=== PATIENT | male | born 1995 ===

== ENCOUNTER 2018-01-25 12:53 | Outpatient (REF) | payer MEDICAID, SELFPAY | END 2018-01-25 12:54 | LOC: NCHCN 12:53 | PROVIDERS: PCP Nurse Practitioner Family; Visit Provider Nurse Practitioner Family | DX: R31.9 Hematuria, unspecified (principal) | CPT/HCPCS: 87086 ==

== ENCOUNTER 2018-01-26 15:26 | Outpatient (REF) | payer MEDICAID, SELFPAY ==
[2018-01-28 13:52] LABS: Chlamydia Result Negative; GC Result Negative; Specimen Description URINE
== END 2018-01-26 15:27 ==
LOC: NCHCN 15:26
PROVIDERS: PCP Nurse Practitioner Family; Visit Provider Nurse Practitioner Family
DX: R31.9 Hematuria, unspecified (principal)
CPT/HCPCS: 87491; 87591

== ENCOUNTER 2018-02-22 15:58 | Outpatient (REF) | payer MEDICAID, SELFPAY ==
[2018-02-24 12:08] LABS: HIV-1/2 Ag & Ab Screen Negative (NEGAT)
[2018-02-24 15:57] LABS: Chlamydia Result Negative; GC Result Negative; Specimen Description URINE
[2018-02-24 21:49] LABS: C.trach, Misc, Amplified RNA Negative (Negative); N.gonorr, Misc, Amplified RNA Negative (Negative); SOURCE: ORAL; SOURCE: RECTAL
== END 2018-02-22 16:18 ==
LOC: NCHCN 15:58
PROVIDERS: PCP Nurse Practitioner Family; Visit Provider Nurse Practitioner Family
DX: F66 Other sexual disorders (principal); R31.9 Hematuria, unspecified; K21.9 Gastro-esophageal reflux disease without esophagitis; Z79.899 Other long term (current) drug therapy; Z11.3 Encounter for screening for infections with a predominantly sexual mode of transmission; Z11.4 Encounter for screening for human immunodeficiency virus [HIV]
CPT/HCPCS: 87389; 87491; 87591

== ENCOUNTER 2018-04-15 16:47 | Outpatient (REF) | payer MEDICAID, SELFPAY ==
[2018-04-15 21:17] LABS: Bacteria Rare HPF (Negative); C & S Indicated? No; Crystals Negative HPF (Negative); Epithelial Cells Rare HPF (Negative); Mucus Negative (Negative); RBC 0-2 (0-2); WBC 0-2 HPF (0-5)
== END 2018-04-15 17:07 ==
LOC: NCHCN 16:47
PROVIDERS: PCP Nurse Practitioner Family; Visit Provider Nurse Practitioner Family
DX: R31.9 Hematuria, unspecified (principal)
CPT/HCPCS: 81015

== ENCOUNTER 2019-03-03 11:10 | Outpatient (REF) | payer SELFPAY ==
[2019-03-07 12:30] LABS: HIV-1/2 Ag & Ab Screen Negative (NEGAT)
== END 2019-03-03 11:30 ==
LOC: NCHCO 11:10
PROVIDERS: PCP Nurse Practitioner Family; Visit Provider Registered Nurse
DX: Z11.3 Encounter for screening for infections with a predominantly sexual mode of transmission (principal); Z11.4 Encounter for screening for human immunodeficiency virus [HIV]
CPT/HCPCS: 87389

== ENCOUNTER 2020-05-01 17:36 | Outpatient (REF) | payer SELFPAY ==
[2020-05-01 23:21] LABS: Hemoglobin A1C 5.3 % (<5.7)
[2020-05-01 23:29] LABS: ALT 50 U/L (16-63); AST 22 U/L (15-37); Albumin 4.1 g/dL (3.4-5.0); Alkaline Phosphatase 102 U/L (46-116); Anion Gap 10.2 mmol/L (3-11); BUN 15 mg/dL (7-18); Bilirubin, Total 0.3 mg/dL (0.2-1.0); CO2 25.8 mmol/L (21.0-32.0); CREATININE 1.13 mg/dL (0.70-1.30); Calcium 9.4 mg/dL (8.5-10.1); Calculated LDL 139 mg/dL (<100); Chloride 104 mmol/L (98-107); Cholesterol 207 mg/dL (<200); Glucose 87 mg/dL (74-106); HDL Cholesterol 31 mg/dL (40-60); Potassium 4.4 mmol/L (3.5-5.1); Sodium 140 mmol/L (136-145); TSH 3.26 uIU/mL (0.36-3.74); Total Protein 8.2 g/dL (6.4-8.2); Triglyceride 189 mg/dL (<150)
[2020-05-03 09:57] LABS: Syphilis Serology (RPR) Negative (Negative)
[2020-05-03 10:12] LABS: Hepatitis C Ab w Rflx HCV PCR Negative (Negative)
[2020-05-03 10:57] LABS: HIV-1/2 Ag & Ab Screen Negative (Negative)
[2020-05-03 14:57] LABS: Chlamydia Result Negative (Negative); GC Result Negative (Negative)
[2020-05-03 22:58] LABS: N.gonorr, Misc, Amplified RNA Negative (Negative); SOURCE: ORAL; SOURCE: RECTAL
== END 2020-05-01 17:56 ==
LOC: NCHCN 17:36
PROVIDERS: PCP Nurse Practitioner Family; Visit Provider Nurse Practitioner Family
DX: I10 Essential (primary) hypertension (principal); F17.200 Nicotine dependence, unspecified, uncomplicated; J45.909 Unspecified asthma, uncomplicated; F51.04 Psychophysiologic insomnia; Z13.1 Encounter for screening for diabetes mellitus; Z11.4 Encounter for screening for human immunodeficiency virus [HIV]; Z11.59 Encounter for screening for other viral diseases; Z11.6 Encounter for screening for other protozoal diseases and helminthiases; Z79.899 Other long term (current) drug therapy; E66.9 Obesity, unspecified
CPT/HCPCS: 80053; 80061; 86803; 87389; 87491; 87591; 83036; 84443; 86592

== ENCOUNTER 2022-11-04 19:10 | Outpatient (REF) | payer BC, SELFPAY ==
[2022-11-04 15:14] LABS: ALT 92 U/L (16-63); AST 42 U/L (15-37); Albumin 3.9 g/dL (3.4-5.0); Alkaline Phosphatase 80 U/L (46-116); Anion Gap 8.5 mmol/L (3-11); BUN 17 mg/dL (7-18); Bilirubin, Total 0.3 mg/dL (0.2-1.0); CO2 26.5 mmol/L (21.0-32.0); Calcium 9.2 mg/dL (8.5-10.1); Calculated LDL 142 mg/dL (<100); Chloride 105 mmol/L (98-107); Cholesterol 213 mg/dL (<200); Estimated GFR 106.45 (mL/min/1.73m2); Glucose 96 mg/dL (74-106); HDL Cholesterol 37 mg/dL (40-60); Potassium 3.9 mmol/L (3.5-5.1); Sodium 140 mmol/L (136-145); Total Protein 8.5 g/dL (6.4-8.2); Triglyceride 171 mg/dL (<150)
[2022-11-04 15:47] LABS: Hemoglobin A1C 5.5 % (<5.7)
[2022-11-05 16:32] LABS: Chlamydia Result Negative (Negative); GC Result Negative (Negative)
== END 2022-11-04 19:11 | disposition home or self-care (01) ==
LOC: NCHCN 19:10
PROVIDERS: PCP Nurse Practitioner Family; Visit Provider Nurse Practitioner Family
DX: I10 Essential (primary) hypertension (principal); F17.200 Nicotine dependence, unspecified, uncomplicated; N50.89 Other specified disorders of the male genital organs; R79.89 Other specified abnormal findings of blood chemistry
CPT/HCPCS: 80053; 80061; 87491; 87591; 83036

== ENCOUNTER 2023-06-25 10:50 | Outpatient (REF) | payer BC, SELFPAY | END 2023-06-25 10:51 | disposition home or self-care (01) | LOC: NCHCN 10:50 | PROVIDERS: PCP Nurse Practitioner Family; Visit Provider Family Medicine | DX: R31.9 Hematuria, unspecified (principal) | CPT/HCPCS: 87086 ==